=== PATIENT | female | born 1965 | race Caucasian/White ===

== ENCOUNTER 2020-01-19 17:45 | Inpatient (IN) | payer BC, SELFPAY ==
--- NOTE | ~2020-01-19 | US_ITS ---
EXAMINATION: US right upper quadrant DATE: 01/20/2020 14:46 INDICATION: Pancreatitis TECHNIQUE: Multiple grayscale and Doppler ultrasound images of the abdomen were obtained. COMPARISON: None available FINDINGS: Bowel gas obscures visualization of the pancreas. The liver demonstrates increased echogeni city, heterogenous echotexture, and decreased through transmission. No surface nodularity. Normal hep atopetal flow in the main portal vein. The gallbladder is surgically absent. The normal common bile d uct measures 5 mm. IMPRESSION: 1. Diffuse hepatic steatosis. Reviewed, dictated and finalized at location A.
--- NOTE | ~2020-01-19 | XR_ITS ---
XR chest 1V portable DATE: 01/22/2020 06:25 INDICATION: Fever, leukocytosis TECHNIQUE: 01/22/2020 portable AP chest at 0542 hours COMPARISON: 01/19/2020 PA and lateral chest FINDINGS: There are bibasilar infiltrates and/atelectasis, new since 01/19/2020. The lungs otherwise appear clear. Spinal rods and scoliosis of the thoracic and lumbar spine are again noted. IMPRESSION: New bibasilar infiltrate and/or atelectasis since 01/19/2020 Reviewed, dictated and finalized at location A.
--- NOTE | ~2020-01-19 | CT_ITS ---
EXAMINATION: CT abdomen pelvis w con INDICATION: Epigastric pain and elevated lipase TECHNIQUE: Computed tomographic images of the abdomen and pelvis were obtained after the administrati on of 100 cc of Omnipaque 350 intravenous contrast. The dose-length product (DLP) was 1171.85 mGy-cm. Automated exposure control and iterative reconstruction technique were employed. COMPARISON: 05/26/2016 FINDINGS: The lung bases are clear. The heart size is normal. The liver is diffusely low in attenuati on when compared with the spleen, consistent with hepatic steatosis. There is a 9 mm cyst in the left hepatic lobe. The gallbladder is surgically absent. The spleen and adrenal glands are normal. There are peripelvic cysts of the otherwise normal kidneys. The body and tail of the pancreas are enlarged relative to the head and neck. There is a moderate amount of peripancreatic fluid surrounding the bod y and tail and extending into the left anterior pararenal space and left pericolic gutter. No patholo gically enlarged abdominal or pelvic lymph nodes are identified. There is no free intraperitoneal gas or evidence of bowel obstruction. The appendix is normal. There is thoracolumbar levoscoliosis with a partially imaged thoracolumbar distraction karen. IMPRESSION: 1. Acute pancreatitis, likely interstitial edematous pancreatitis, with acute peripancreatic fluid co llection. 2. Diffuse hepatic steatosis. Reviewed, dictated and finalized at location A. IMPRESSION: 1. Acute pancreatitis, likely interstitial edematous pancreatitis, with acute p eripancreatic fluid collection. 2. Diffuse hepatic steatosis.
--- NOTE | ~2020-01-19 | XR_ITS ---
EXAMINATION: XR chest 2V DATE: 01/19/2020 18:13 INDICATION: Midsternal chest pain radiating to the back TECHNIQUE: PA and lateral views of the chest are obtained. COMPARISON: 02/08/2019 FINDINGS: The lungs are free of acute opacities. There is no pleural effusion or pneumothorax. The ca rdiomediastinal silhouette is normal. Again noted is S-shaped curvature of the spine with a thoracolu mbar distraction karen. Cholecystectomy clips are noted. IMPRESSION: 1. No acute cardiopulmonary abnormality. Reviewed, dictated and finalized at location A.
--- NOTE | 2020-01-19 17:51 | ECG_ITS ---
Measurements Intervals [place] Rate: 80 P: 33 AR: 166 QRS: 12 QRSD: 86 T: 29 QT: 387 QTc: 448 Interpretive Statements SINUS RHYTHM VOLTAGE CRITERIA FOR LVH MINIMAL Q WAVES- HIGH LATERAL LEADS CONSIDER INFERIOR INFARCT, AGE INDETERMINATE BASELINE ARTIFACT- I, II, AVR, AVL ABNORMAL ECG Electronically Signed On 01-19-2020 20:13:12 CDT by Teodoro Shaw D.O.
[2020-01-19 17:52] VITALS: BP 164/117; PULSE 88; RESP 20; TEMP 36.5; O2SAT 99
[2020-01-19 17:59] VITALS: PULSE 85; O2SAT 99
[2020-01-19] MEDS: ASPIRIN 81 MG CHEWABLE TABLET 324 MG PO (18:15)
[2020-01-19 18:29] LABS: Basophils Percent Auto 0.2 % (0.2-1.2); Eosinophils Absolute Auto 0.1 K/mm3 (0-0.3); Hemoglobin 14.4 g/dL (12.0-15.0); Immature Granulocyte Absolute 0.07 K/mm3 (0.00-0.031); Immature Granulocyte Percent A 0.5 % (0-0.5); Lymphocytes Absolute Auto 2.25 K/mm3 (0.9-3.2); Lymphocytes Percent Auto 15.8 % (18.3-44.2); Mean Corpuscular Hemoglobin 30.3 pg (26-34); Mean Corpuscular Volume 94.7 fl (80-100); Monocytes Percent Auto 6.9 % (2.6-8.5); Neutrophils Absolute Auto 10.8 K/mm3 (1.3-6.7); Neutrophils Percent Auto 75.6 % (45.5-73.1); Platelet Count Result 335 k/mm3 (150-375); Red Blood Count 4.75 M/mm3 (4.2-5.4); Red Cell Distribution Width 13.1 % (11.5-14.5); White Blood Count 14.3 K/mm3 (4.5-10.0)
[2020-01-19 18:39] LABS: INR 0.9
[2020-01-19 18:40] LABS: Partial Thromboplastin Time 28.7 SECONDS (22.3-36.8)
[2020-01-19 18:44] LABS: Anion Gap 12.9 mmol/L (7-16); Blood Urea Nitrogen 13 mg/dL (7-17); Calcium 8.7 mg/dL (8.4-10.2); Carbon Dioxide 28 mmol/L (22-30); Chloride 104 mmol/L (98-107); Estimated CRCL calculation 62 ml/min; Estimated Glomerular Filt Rate 58; Glucose 136 mg/dL (65-105); Potassium 3.9 mmol/L (3.4-5.0); Sodium 141 mmol/L (137-145)
[2020-01-19 18:56] LABS: Troponin I < 0.012 ng/mL (0.000-0.034)
[2020-01-19] MEDS: BELLADONNA ALK/PHENOB ELIX 10 ML, MAG HYDROX/ALUMINUM HYD/SIMETH 30 ML, LIDOCAINE HCL 2... PO (20:21)
[2020-01-19 20:53] LABS: Alanine Aminotransferase 29 U/L (4-35); Albumin Level 4.3 g/dL (3.5-5.1); Alkaline Phosphatase 77 U/L (38-126); Aspartate Amino Transferase 30 U/L (14-36)
--- NOTE | 2020-01-19 21:02 | ED.GENADULT ---
HPI - General Adult General Chief complaint: Chest Pain Stated complaint: chest pain Time Seen by Provider: 01/19/20 17:57 Source: patient and family Mode of arrival: ambulatory Limitations: no limitations History of Present Illness HPI narrative: 54-year-old female History of GERD hypertension and as it turns out a previous cholecystectomy Around 5:00 tonight she started having epigastric pain radiated to her back and was not relieved by omeprazole She did not have nausea or shortness of breath or diaphoresis She was just working at her computer and cannot really identify anything that might of precipitated her symptoms She does not drink alcohol Onset (ago): hour(s) Location: chest and abdomen Radiation: back Severity: moderate Quality: aching Relieving factors: none Exacerbating factors: none Related Data Home Medications Medication Instructions Recorded Confirmed hyoscyamine sulfate mg 01/19/20 levothyroxine 01/19/20 lisinopril 01/19/20 nabumetone mg 01/19/20 omeprazole 01/19/20 tramadol mg 01/19/20 Allergies Allergy/AdvReac Type Severity Reaction Status Date / Time codeine Allergy Hives Verified 01/19/20 17:58 Penicillins Allergy Rash Verified 01/19/20 17:58 Review of Systems Review of Systems: All systems reviewed & are unremarkable except as noted in HPI and below Constitutional: Constitutional: Denies chills and Denies fever(s) Cardiovascular: Cardiovascular: Reports no additional cardiovascular complaints Respiratory: Respiratory: Reports no additional respiratory complaints Gastrointestinal: Gastrointestinal: Denies diarrhea and Denies vomiting Genitourinary: Genitourinary: Reports no additional female genitourinary complaints Musculoskeletal: Musculoskeletal: Reports back pain Neurologic: Denies dizziness, Denies numbness and Denies weakness [facility] Social History Social History Gender identity (if verbalized by the patient): Female Exam Const: General: no acute distress Nutritional Appearance: obese Orientation/consciousness: patient oriented x3 HENMT: Mouth: Yes moist mucous membranes Eyes: Conjunctivae: conjunctivae normal EOM: EOMs intact bilaterally Resp: Effort & Inspection: normal respiratory effort Auscultation: clear to auscultation bilaterally Other: Slightly tender anteriorly does not reproduce her symptoms Cardio: Rate: regular rate Rhythm: regular rhythm GI: Inspection: non-distended GI Palp: Yes Soft to palpation, Yes Tenderness to palpation present (GI) (Upper abdomen/epigastric), No Guarding due to palpation present (GI) and No Rebound tenderness present : General: Yes no CVA tenderness Back/Spine/Pelvis: Other: Long midline scar Skin: General skin exam: normal color Neuro: General: patient oriented x3 and no focal motor deficits Extrem: General: no edema Psych: Mental Status: mental status grossly normal Course Vital Signs Vital signs: Vital Signs Temperature 36.5 C 01/19/20 17:52 Pulse Rate 88 01/19/20 17:52 Respiratory Rate 01/19/20 17:52 Blood Pressure 164/117 H 01/19/20 17:52 Pulse Oximetry 99 01/19/20 17:52 Temperature 36.5 C 01/19/20 17:52 Pulse Rate 85 01/19/20 17:59 Respiratory Rate 20 01/19/20 17:52 Blood Pressure 164/117 H 01/19/20 17:52 Pulse Oximetry 99 01/19/20 17:59 Medical Decision Making MDM Narrative Medical decision making narrative: d/w hospitalist for admit Vital Signs Vital Signs: Vital Signs Temperature 36.5 C 01/19/20 17:52 Pulse Rate 88 01/19/20 17:52 Respiratory Rate 20 01/19/20 17:52 Blood Pressure 164/117 H 01/19/20 17:52 Pulse Oximetry 99 01/19/20 17:52 Temperature 36.5 C 01/19/20 17:52 Pulse Rate 85 01/19/20 17:59 Respiratory Rate 20 01/19/20 17:52 Blood Pressure 164/117 H 01/19/20 17:52 Pulse Oximetry 99 01/19/20 17:59 Lab Data Result diagrams: 01/19/20 18:03 01/19/20 18:03
[2020-01-19 21:13] LABS: Lipase 18541 U/L (23-300)
[2020-01-19 21:30] LABS: Troponin I < 0.012 ng/mL (0.000-0.034)
[2020-01-19] MEDS: DICYCLOMINE HCL INJ 20 MG/2 ML VIAL IM (22:29)
[2020-01-19] MEDS: LACTATED RINGERS 1,000 ML 999 ML IV CONT (22:32)
[2020-01-19] MEDS: PANTOPRAZOLE SODIUM IV 40 MG VIAL IV PUSH (22:32)
[2020-01-19 23:17] VITALS: BP 155/86; PULSE 89; RESP 16; TEMP 36.8; O2SAT 97
--- NOTE | 2020-01-19 23:31 | ADMGEN ---
This patient, Parisa Ramírez, was admitted to Medical Room 349-01. Patient/family oriented to hospital policies and general routines including ID bracelet, bed and alarms, visiting hours, pain management, procedures, bathroom and other care routines, personal items, smoking policy, room service/diet, and visiting hours. Valuables list has been completed. Information on how to activate the Rapid Response Team has been discussed. Patient/Family are encouraged to report perceived risks to care and to ask questions if they do not understand what they are told or what they should do.
[2020-01-19 23:44] VITALS: BP 152/86; PULSE 80; RESP 16; TEMP 36.7; O2SAT 97
[2020-01-19] MEDS: LACTATED RINGERS 1,000 ML 200 ML IV CONT (23:45)
[2020-01-20] VITALS (7 sets, daily range): BP systolic 150–160; BP diastolic 83–99; PULSE 82–98; RESP 16–20; TEMP 36.1–38.1; O2SAT 92–96; BMI 42.3
[2020-01-20 00:09] LABS: Troponin I < 0.012 ng/mL (0.000-0.034)
[2020-01-20] MEDS: ONDANSETRON INJ 4 MG/2 ML VIAL IV PUSH ×3 (00:20→20:53)
--- NOTE | 2020-01-20 02:25 | PM.IMHP ---
H&P: HPI History of Present Illness Chief complaint: Chest pain Narrative: Date and time of patient contact: 01/20/2020 at 3:00 a.m. Parisa Ramírez is a 54 year old female with a past medical history of essential hypertension, hypothyroidism, GERD and cholecystectomy who presented to the ER with chest pain.The patient reports that around 2:00 p.m. she ate a lunch consisting of a cheeseburger and fries. at around 4:00 p.m. she developed lower chest pain /epigastric pain that was moderate in intensity. She describes the pain as a deep ache. After a few minutes the pain then radiated through to her back. Pain also radiated around to her right side of her abdomen. It was accompanied by some nausea and shortness of breath She took her omeprazole thinking that pain was due to GERD. she did not have any relief with the omeprazole. By the time she arrived to the ER her pain was not 7 or 8/10 in intensity. she reports shortness of breath because of the severity of her abdominal pain. She denies any palpitations, orthopnea or paroxysmal nocturnal dyspnea. While in the ER she received a GI cocktail. She had emesis of a GI cocktail shortly thereafter. She also then had emesis of the lunch she had eaten earlier in the day. She has had some dry heaves but denies any further vomiting. Her pain is unrelieved despite fentanyl. She reports that initially the fentanyl seems to give her some mild relief in pain but her pain rapidly returns after about 30 minutes. Her pain is worse with palpation of her abdomen. She has never had abdominal pain like this before. she had a history of a cholecystectomy in 2016 due to acute cholecystitis. She denies having history of gallstones. She had never had pain similar to this before. She does not have a history of alcohol use. She has not had any recent medication changes. Her last bowel movement was a couple of hours prior to onset of her abdominal pain. Her bowel movement was normally formed without hematochezia or melena. She denies having any fevers or chills. Review of Systems Review of Systems: Narrative: 12 systems were reviewed with pertinent positives and negatives per HPI. Except as documented in the HPI, all other systems were reviewed and are negative. [facility] Past Medical History Medical History (Updated 01/20/20 @ 04:59 by Solange Rodriguez DO) Essential hypertension GERD (gastroesophageal reflux disease) Hypothyroidism Osteoarthritis Surgical History Surgical History (Updated 01/20/20 @ 04:40 by Solange Rodriguez DO) Hx of cholecystectomy Previous section Scoliosis of thoracolumbar spine status post surgical repair at age 15 Family History Family History Mother CHF (congestive heart failure) Diabetes mellitus Heart disease Father Hypertension Social History Social History (Updated 01/20/20 @ 04:40 by Solange Rodriguez DO) Social History: Primary care physician: Dr. Akash Baumann Code status: Full code Smoking status: Never smoker Alcohol intake: never Substance use: never Substance use type: does not use Living arrangements: with family Additional living arrangements comments: the patient lives in [place] with her . 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 Gender identity (if verbalized by the patient): Female Sexual Orientation (if Verbalized by the Patient): Straight or Heterosexual Spiritual care concerns: No Meds Home Medications and Allergies Home Medications Medication Instructions Recorded Confirmed Type cetirizine [Zyrtec] 10 mg PO DAILY 01/19/20 01/19/20 History levothyroxine 75 mcg PO QAM 01/19/20 01/19/20 History lisinopril 10 mg PO BID 01/19/20 01/19/20 History nabumetone 50 mg PO DAILY 01/19/20 01/19/20 History omeprazole 40 mg PO DAILY 01/19/20 01/19/20 History soy is
[2020-01-20] MEDS: MORPHINE SULFATE 4 MG/ML INJ IV PUSH ×5 (04:28→20:57)
[2020-01-20] MEDS: PROMETHAZINE HCL 25 MG/ML AMPUL IM (04:28)
[2020-01-20] MEDS: LACTATED RINGERS 1,000 ML 200 ML IV CONT ×2 (04:30→10:10)
[2020-01-20 07:04] LABS: Basophils Percent Auto 0.1 % (0.2-1.2); Eosinophils Percent Auto 0.1 % (0-4.4); Hematocrit 44.6 % (37.0-47.0); Hemoglobin 14.6 g/dL (12.0-15.0); Immature Granulocyte Percent A 0.5 % (0-0.5); Lymphocytes Absolute Auto 0.95 K/mm3 (0.9-3.2); Lymphocytes Percent Auto 5.2 % (18.3-44.2); Mean Corpuscular HGB Conc 32.7 g/dl (32-36); Mean Corpuscular Hemoglobin 30.7 pg (26-34); Mean Corpuscular Volume 93.7 fl (80-100); Mean Platelet Volume 9.9 fl (7.4-10.4); Monocytes Absolute Auto 0.8 K/mm3 (0.1-0.6); Monocytes Percent Auto 4.3 % (2.6-8.5); Neutrophils Absolute Auto 16.3 K/mm3 (1.3-6.7); Neutrophils Percent Auto 89.8 % (45.5-73.1); Platelet Count Result 317 k/mm3 (150-375); Red Blood Count 4.76 M/mm3 (4.2-5.4); Red Cell Distribution Width 13.1 % (11.5-14.5); White Blood Count 18.2 K/mm3 (4.5-10.0)
[2020-01-20 07:16] LABS: Alanine Aminotransferase 30 U/L (4-35); Albumin Level 4.4 g/dL (3.5-5.1); Alkaline Phosphatase 82 U/L (38-126); Anion Gap 14.1 mmol/L (7-16); Aspartate Amino Transferase 27 U/L (14-36); Bilirubin,Total 1.6 mg/dL (0.2-1.3); Blood Urea Nitrogen 10 mg/dL (7-17); Calcium 9.2 mg/dL (8.4-10.2); Carbon Dioxide 25 mmol/L (22-30); Chloride 102 mmol/L (98-107); Estimated CRCL calculation 98 ml/min; Estimated Glomerular Filt Rate > 60; Glucose 137 mg/dL (65-105); Lipase 1530 U/L (23-300); Potassium 4.1 mmol/L (3.4-5.0); Sodium 137 mmol/L (137-145)
[2020-01-20 07:20] LABS: Triglycerides 87 mg/dL (<150)
[2020-01-20] MEDS: ENOXAPARIN 40 MG/0.4 ML SYRINGE SUB-Q (08:44)
--- NOTE | 2020-01-20 10:49 | WPDGICN ---
Assessment and Plan Assessment and plan (1) Acute pancreatitis: Code(s): K85.90 - Acute pancreatitis without necrosis or infection, unspecified Status: Acute Assessment and Plan: Acute pancreatitis evident by elevated lipase as well as CT scan findings. Most likely idiopathic. Patient has previously had cholecystectomy. She denies significant alcohol intake. Because of her obesity lipid level will be reviewed. Plan to treat her with conservatively with bowel rest. Pain control. Continue monitor liver enzymes and lipase. We will consider advancing to a low-fat diet as her pain subsides and lipase levels decline (2) Obesity (BMI 30.0-34.9): Code(s): E66.9 - Obesity, unspecified Status: Acute GI Consult Note Consult date/time: 01/20/20 10:49 HPI: Parisa Ramírez is a 54 year old female seen in evaluation at the request of the hospitalist service.Patient has a history of hypertension, hypothyroidism, previous cholecystectomy. She was in usual state of health till yesterday when she developed midepigastric pain with radiation straight through to her back. She states this started mid afternoon after eating a cheeseburger. She states pain is persisted since that time. Last evening she went to the emergency room was found to have markedly elevated lipase. CT scan was consistent with acute pancreatitis. Patient states that she has had a cholecystectomy many years ago because of acute cholecystitis. She is uncertain if there were gallstones present. She denies alcohol intake. She has had no recent change in medications. No one in the family has had pancreatic disease. Review of Systems Review of Systems: All systems reviewed & are unremarkable except as noted in HPI and below PMFSH Past Medical History Medical History Essential hypertension GERD (gastroesophageal reflux disease) Hypothyroidism Osteoarthritis Surgical History Surgical History Hx of cholecystectomy Previous section Scoliosis of thoracolumbar spine status post surgical repair at age 15 Family History Family History Mother CHF (congestive heart failure) Diabetes mellitus Heart disease Father Hypertension Social History Social History (Updated 01/20/20 @ 04:40 by Solange Rodriguez DO) Social History: Primary care physician: Dr. Akash Baumann Code status: Full code Smoking status: Never smoker Alcohol intake: never Substance use: never Substance use type: does not use Living arrangements: with family Additional living arrangements comments: the patient lives in [place] with her . 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 Gender identity (if verbalized by the patient): Female Sexual Orientation (if Verbalized by the Patient): Straight or Heterosexual Spiritual care concerns: No Meds Home Medications and Allergies Home Medications Medication Instructions Recorded Confirmed Type cetirizine [Zyrtec] 10 mg PO DAILY 01/19/20 01/19/20 History levothyroxine 75 mcg PO QAM 01/19/20 01/19/20 History lisinopril 10 mg PO BID 01/19/20 01/19/20 History nabumetone 50 mg PO DAILY 01/19/20 01/19/20 History omeprazole 40 mg PO DAILY 01/19/20 01/19/20 History soy isofla-blk cohosh-mag bark 155 cap PO DAILY 01/19/20 01/19/20 History [Estroven] tramadol 50 mg PO HS 01/19/20 01/19/20 History Allergies Allergy/AdvReac Type Severity Reaction Status Date / Time codeine Allergy Hives Verified 01/19/20 23:47 Penicillins Allergy Rash Verified 01/19/20 23:47 Vital Signs Vital Signs - 24 hr 01/19/20 17:52 01/19/20 17:59 01/19/20 23:17 Temperature 97.7 F 98.2 F Pulse Rate 88 85 89 Respiratory Rate 20 16 Blood Pressure 164/117 H 155/86 H
--- NOTE | 2020-01-20 11:40 | PM.IMPN ---
Progress Note: A&P Assessment and Plan (1) Pancreatitis: Qualifiers: Acute pancreatitis complication: no infection or necrosis Chronicity: acute Pancreatitis type: idiopathic Qualified Code(s): K85.00 - Idiopathic acute pancreatitis without necrosis or infection Code(s): K85.90 - Acute pancreatitis without necrosis or infection, unspecified Status: Acute Assessment and Plan: Evident on CT. Likely due to idiopathic pancreatitis, especially in the setting of the acute high fat meal. She has a history of cholecystectomy, therefore gallstone pancreatitis is less likely. She denies significant alcohol use. Triglycerides are wnl. Lipase levels improved. She had increase in leukocytosis. Continue NPO diet. Advance to clear liquid diet with improvement of pain and lipase levels Continue IV fluids Continue analgesics as needed. Continue to monitor lipase Will check RUQ US to rule out possible gallstones. Gastroenterology has been consulted and recommendations are appreciated (2) Hypertension: Qualifiers: Hypertension type: essential hypertension Qualified Code(s): I10 - Essential (primary) hypertension Code(s): I10 - Essential (primary) hypertension Status: Acute Assessment and Plan: Blood pressure was reviewed and is elevated. Continue to hold lisinopril while NPO. Plan to resume when clinically appropriate. IV hydralazine is ordered as needed for SBP >165 (3) GERD (gastroesophageal reflux disease): Qualifiers: Esophagitis presence: esophagitis presence not specified Qualified Code(s): K21.9 - Gastro-esophageal reflux disease without esophagitis Code(s): K21.9 - Gastro-esophageal reflux disease without esophagitis Status: Acute Assessment and Plan: Asymptomatic at this time. Begin Pepcid (4) Hypothyroidism: Qualifiers: Hypothyroidism type: unspecified Qualified Code(s): E03.9 - Hypothyroidism, unspecified Code(s): E03.9 - Hypothyroidism, unspecified Status: Acute Assessment and Plan: Transition to IV levothyroxine while NPO Check TSH Subjective Date/time seen: 01/20/20 11:40 Interval history: Date of service: 01/20/2020 She complains of 6/10 aching epigastric pain that radiates through to the back. Hre pain is persistent and is unchanged with positional changes. She had an episode of emesis early this morning. She still feels nauseous. She has no appetite. She denies GERD symptoms. She has been passing flatus and belching. Her last BM was yesterday before presenting to the hospital. She is able to get up and walk to the bathroom without difficulty. She denies weakness, dizziness, or lightheadedness. She feels short of breath, especially when her pain is more severe. She denies cough or chest pain. She denies headache or confusion. She has no additional concerns. Review of Systems Review of Systems: Narrative: A 12 point review of systems was reviewed with pertinent positives and negatives as per HPI. Exam Narrative: Exam Narrative: Ms. Ramírez is examined alone today. She is an obese 54 year old female who is sitting up at the bedside. She appears comfortable and is in NARD. HR 91, BP 160/83, RR 20, T 97.6, 96% on room air Neuro: awake, alert and oriented x4, speech clear, no focal neuro deficits noted HEENMT: normocephalic, atraumatic, EOMI, sclerae anicteric, xanthelasma noted on bilateral lower eyelids, moist oral mucosa Neck: supple, no lymphadenopathy Respiratory: clear to auscultation bilaterally, nonlabored breathing Cardio: regular rate, regular rhythm with S1-S2 Abdomen: obese, nondistended, normoactive bowel sounds, soft, tender to palpation in epigastric region, no rigidity or guarding Extremities: no edema, erythema, cyanosis, clubbing, or tenderness to palpation, DP pulses 2+ bilaterally Skin: somewhat pale, no rashes or lesions, warm and dry Psych: approp
[2020-01-20] MEDS: FAMOTIDINE 20 MG/2 ML VIAL IV PUSH (20:56)
[2020-01-20] MEDS: LACTATED RINGERS 1,000 ML 100 ML IV CONT (21:00)
[2020-01-21 01:02] VITALS: TEMP 37.6
[2020-01-21] MEDS: MORPHINE SULFATE 4 MG/ML INJ IV PUSH ×5 (01:06→19:54)
[2020-01-21] MEDS: ONDANSETRON INJ 4 MG/2 ML VIAL IV PUSH ×4 (01:06→13:52)
[2020-01-21 04:27] VITALS: BP 150/93; PULSE 101; RESP 18; TEMP 37.1; O2SAT 95
[2020-01-21] MEDS: LEVOTHYROXINE SODIUM INJ 100 MCG/5 ML VIAL 37.5 MCG IV PUSH (05:36)
[2020-01-21] MEDS: LACTATED RINGERS 1,000 ML 100 ML IV CONT ×2 (05:36→15:46)
[2020-01-21 06:34] LABS: Hematocrit 39.3 % (37.0-47.0); Hemoglobin 12.6 g/dL (12.0-15.0); Mean Corpuscular HGB Conc 32.1 g/dl (32-36); Mean Corpuscular Volume 93.6 fl (80-100); Mean Platelet Volume 10.1 fl (7.4-10.4); Platelet Count Result 281 k/mm3 (150-375); Red Cell Distribution Width 13.4 % (11.5-14.5); White Blood Count 20.3 K/mm3 (4.5-10.0)
[2020-01-21 06:46] LABS: Alanine Aminotransferase 28 U/L (4-35); Albumin Level 3.7 g/dL (3.5-5.1); Alkaline Phosphatase 61 U/L (38-126); Anion Gap 10.9 mmol/L (7-16); Aspartate Amino Transferase 29 U/L (14-36); Bilirubin,Total 2.2 mg/dL (0.2-1.3); Blood Urea Nitrogen 8 mg/dL (7-17); Calcium 8.5 mg/dL (8.4-10.2); Carbon Dioxide 30 mmol/L (22-30); Chloride 97 mmol/L (98-107); Estimated CRCL calculation 85 ml/min; Estimated Glomerular Filt Rate > 60; Glucose 123 mg/dL (65-105); Lipase 490 U/L (23-300); Potassium 3.9 mmol/L (3.4-5.0); Sodium 134 mmol/L (137-145)
--- NOTE | 2020-01-21 07:27 | WPDGIPROGNO ---
Progress Note: A&P Additional Plan Patient continues to complain of diffuse mid abdominal discomfort. Less than yesterday. She has had no more nausea vomiting. Physical exam reveals patient to be alert. Afebrile. She is anicteric. Lungs are clear. Heart without murmur. Abdomen is obese. Modest distention. Bowel sounds are diminished. Abdomen is distended with mild tympany. Extremities are without clubbing cyanosis or edema. Labs reveal LFTs to be normal. Lipase 490. Ultrasound reveals fatty liver. Evidence for previous cholecystectomy. Impression 1. Idiopathic pancreatitis. Patient has a prior history of cholecystectomy. No history of alcohol intake. Plan is for conservative therapy. She may have a mild ileus. I would continue to hold diet. Pain control advised. Continue to monitor labs. Lipase is improved dramatically. Hopefully we can advanced diet over the next day or 2. Continue to monitor labs and lipase. Subjective Date/time seen: 01/21/20 07:27 Objective Data Vital Signs Vital Signs: Vital Signs - 24 hr 01/20/20 07:52 01/20/20 08:44 01/20/20 14:41 Temperature 98.9 F Pulse Rate 96 Respiratory Rate 20 16 Blood Pressure 156/98 H Pulse Oximetry 92 93 93 01/20/20 22:00 01/21/20 01:02 01/21/20 04:27 Temperature 100.5 F H 99.7 F H 98.8 F Pulse Rate 98 101 H Respiratory Rate 18 18 Blood Pressure 150/99 H 150/93 H Pulse Oximetry 95 95 Intake/Output Intake/Output: Intake & Output 01/18/20 01/19/20 01/20/20 01/21/20 23:59 23:59 23:59 23:59 Intake Total 1000 3000 1000 Output Total 1875 750 Balance 1000 1125 250 Meds/Results Medications: Active Medications Generic Name Dose Route Start Last Admin Trade Name Freq PRN Reason Stop Dose Admin Dicyclomine HCl 20 mg 01/19/20 22:35 Bentyl Inj IM Q6H PRN Abdominal Cramping Enoxaparin Sodium 40 mg 01/20/20 09:00 01/20/20 08:44 Lovenox SUB-Q 40 mg DAILY STEF Administration Famotidine 20 mg 01/20/20 21:00 01/20/20 20:56 Pepcid Iv IV PUSH 20 mg Q12HR STEF Administration Hydralazine HCl 10 mg 01/20/20 03:32 Apresoline Hcl Inj IV PUSH Q4H PRN SBP greater than 165 Lactated Ringer's 1,000 mls @ 100 mls/hr 01/19/20 22:35 01/21/20 05:36 Lr - Lactated Ringers Iv IV CONT 100 mls/hr .Q10H STEF Administration Acetaminophen 1,000 mg in 100 mls @ 400 mls/hr 01/20/20 23:29 Ofirmev 1,000 Mg Ivpb IVPB 01/21/20 23:30 Q6H PRN Fever Levothyroxine Sodium 37.5 mcg 01/21/20 06:30 01/21/20 05:36 Synthroid Inj IV PUSH 37.5 mcg DAILY@0630 STEF Administration Morphine Sulfate 4 mg 01/20/20 03:30 01/21/20 05:34 Morphine Sulfate Inj IV PUSH 4 mg Q4H PRN Administration Pain Rated 7-10 Ondansetron HCl 4 mg 01/19/20 22:35 01/21/20 05:34 Zofran Inj IV PUSH 4 mg Q4H PRN Administration Nausea Radiology Results: ITS Impressions Chest X-Ray 01/19/20 18:23 IMPRESSION: 1. No acute cardiopulmonary abnormality. Abdomen/Pelvis CT 01/19/20 23:00 IMPRESSION: 1. Acute pancreatitis, likely interstitial edematous pancreatitis, with acute peripancreatic fluid collection. 2. Diffuse hepatic steatosis. Upper Quadrant Ultrasound 01/20/20 14:59 IMPRESSION: 1. Diffuse hepatic steatosis. Labs Labs: Laboratory Results - last 24 hr 01/21/20 05:48 Sodium 134 L Potassium 3.9 Chloride 97 L Carbon Dioxide 30 Anion Gap 10.9 BUN 8 Creatinine 0.70 Estim Creat Clear Calc 85 Estimated GFR > 60 Glucose 123 H Calcium 8.5 Total Bilirubin 2.2 H AST 29 ALT 28 Alkaline Phosphatase 61 Total Protein 7.0 Albumin 3.7 Lipase 490 H
[2020-01-21 07:46] LABS: Thyroid Stimulating Hormone Reflex 0.631 uIU/mL (0.465-4.68)
[2020-01-21] MEDS: ENOXAPARIN 40 MG/0.4 ML SYRINGE SUB-Q (09:26)
[2020-01-21] MEDS: FAMOTIDINE 20 MG/2 ML VIAL IV PUSH ×2 (09:27→19:54)
[2020-01-21 09:40] VITALS: BP 150/86; PULSE 96; RESP 18; O2SAT 94
[2020-01-21 14:00] VITALS: BP 140/82; PULSE 94; RESP 20; TEMP 36.4; O2SAT 96
--- NOTE | 2020-01-21 16:31 | PM.IMPN ---
Progress Note: A&P Assessment and Plan (1) SIRS (systemic inflammatory response syndrome): Code(s): R65.10 - Systemic inflammatory response syndrome (SIRS) of non-infectious origin without acute organ dysfunction Status: Acute Assessment and Plan: She met SIRS criteria with fever and leukocytosis. Obtain blood cultures. There is no suspected source of infection at this time. Her fever and leukocytosis may be due to her acute pancreatitis. Discussed wtih GI. Antibiotics are not indicated at this time. Plan to obtain blood cultures, UA, and CXR. Continue to trend WBC and monitor vitals. (2) Pancreatitis: Qualifiers: Acute pancreatitis complication: no infection or necrosis Chronicity: acute Pancreatitis type: idiopathic Qualified Code(s): K85.00 - Idiopathic acute pancreatitis without necrosis or infection Code(s): K85.90 - Acute pancreatitis without necrosis or infection, unspecified Status: Acute Assessment and Plan: Evident on CT. Likely due to idiopathic pancreatitis, especially in the setting of the acute high fat meal. She has a history of cholecystectomy, therefore gallstone pancreatitis is less likely. She denies significant alcohol use. Triglycerides are within normal limits. RUQ US revealed hepatic steatosis with no evidence of retained gallstones. Lipase levels continue to improve. WBC and bilirubin have increased. AST, ALT, ALP are normal. She had a temperature of 100.5F overnight. Gastroenterology is on board. Discussed with Dr. Frank and will increase her IV fluid rate. Continue bowel rest with NPO diet. Continue analgesics PRN. Continue antiemetics PRN. Continue to trend lipase, CBC, CMP. Obtain blood cultures due to fever and leukocytosis. Plan to consider MRCP if leukocytosis and bilirubin elevation do not improve with conservative management. (3) Hypertension: Qualifiers: Hypertension type: essential hypertension Qualified Code(s): I10 - Essential (primary) hypertension Code(s): I10 - Essential (primary) hypertension Status: Acute Assessment and Plan: Blood pressure was reviewed and are elevated in the 150s systolic. Lisinopril is on hold since she is NPO. Continue IV hydralazine PRN. Continue to monitor and resume lisinopril when clinically appropriate. (4) GERD (gastroesophageal reflux disease): Qualifiers: Esophagitis presence: esophagitis presence not specified Qualified Code(s): K21.9 - Gastro-esophageal reflux disease without esophagitis Code(s): K21.9 - Gastro-esophageal reflux disease without esophagitis Status: Acute Assessment and Plan: Chronic with no acute issues. Continue pepcid. (5) Hypothyroidism: Qualifiers: Hypothyroidism type: unspecified Qualified Code(s): E03.9 - Hypothyroidism, unspecified Code(s): E03.9 - Hypothyroidism, unspecified Status: Acute Assessment and Plan: Continue IV levothyroxine. TSH was normal at 0.631 01/20. Resume PO levothyroxine when no longer NPO. (6) Obesity (BMI 30.0-34.9): Code(s): E66.9 - Obesity, unspecified Status: Acute Assessment and Plan: Continue to encourage weight loss/lifestyle intervention. (7) DVT prophylaxis: Code(s): Z29.9 - Encounter for prophylactic measures, unspecified Status: Acute Assessment and Plan: Continue lovenox SQ. Time Spent With Patient Time with patient: 25 - 35 minutes Subjective Date/time seen: 01/21/20 16:31 Interval history: Mrs. Ramírez is a 54 y.o. female who is seen in follow-up for acute pancreatitis. She reports that she is still having upper abdominal discomfort which radiates to the back and is better sitting up/leaning forward. She notes that pain is 7/10 and was previously 9/10. She reports mild nausea today but no vomiting. She remains NPO. She had a temperature of 100.5F documented overnight but de
[2020-01-21 22:00] VITALS: BP 152/92; PULSE 105; RESP 20; TEMP 36.6; O2SAT 92
[2020-01-21] MEDS: LACTATED RINGERS 1,000 ML 150 ML IV CONT (22:33)
[2020-01-21 22:53] LABS: Add Urine Microscopic? YES; Appearance Urine Clear (Clear); Bilirubin Urine Negative (Negative); Blood Urine 2+ (Negative); Color Urine Yellow (Yellow); Glucose Urine UA Negative (Negative); Ketones Urine 1+ mg/dL (Negative); Leukocyte Esterase Ur Negative LEU/UL (NEGATIVE); Mucus Urine Rare /lpf; Nitrate Urine Negative (Negative); Protein Urine 1+ mg/dL (Negative); Specific Grav Ur 1.016 (1.001-1.035); Squamous Epithelial Cell Urine Few /hpf (Few); Urobilinogen Urine Negative mg/dL (<2.0)
[2020-01-22] MEDS: MORPHINE SULFATE 4 MG/ML INJ IV PUSH ×4 (02:45→20:10)
[2020-01-22 04:53] VITALS: BP 159/66; PULSE 98; RESP 14; TEMP 36.9; O2SAT 93
[2020-01-22] MEDS: LACTATED RINGERS 1,000 ML 150 ML IV CONT (05:03)
[2020-01-22] MEDS: LEVOTHYROXINE SODIUM INJ 100 MCG/5 ML VIAL 37.5 MCG IV PUSH (05:53)
[2020-01-22 06:07] LABS: Basophils Percent Auto 0.2 % (0.2-1.2); Eosinophils Percent Auto 0.2 % (0-4.4); Hematocrit 36.3 % (37.0-47.0); Hemoglobin 11.7 g/dL (12.0-15.0); Immature Granulocyte Percent A 1.1 % (0-0.5); Lymphocytes Absolute Auto 0.97 K/mm3 (0.9-3.2); Lymphocytes Percent Auto 5.1 % (18.3-44.2); Mean Corpuscular HGB Conc 32.2 g/dl (32-36); Mean Corpuscular Hemoglobin 30.6 pg (26-34); Mean Platelet Volume 10.5 fl (7.4-10.4); Monocytes Absolute Auto 1.4 K/mm3 (0.1-0.6); Monocytes Percent Auto 7.5 % (2.6-8.5); Neutrophils Absolute Auto 16.3 K/mm3 (1.3-6.7); Neutrophils Percent Auto 85.9 % (45.5-73.1); Platelet Count Result 235 k/mm3 (150-375); Red Blood Count 3.82 M/mm3 (4.2-5.4); Red Cell Distribution Width 13.4 % (11.5-14.5)
[2020-01-22 06:31] LABS: Bilirubin Indirect 2.2 mg/dL (0-1.1)
--- NOTE | 2020-01-22 07:00 | WPDGIPROGNO ---
Progress Note: A&P Additional Plan Patient alert and comfortable this morning. She reports pain is somewhat less. She did pass flatus. On physical exam Patient afebrile.abdomen is mildly distended. Mild tympany noted. Bowel sounds are present. Mild epigastric tenderness on palpation. No masses appreciated. Labs revealed WBC 19 K. Hemoglobin 11.7, total bilirubin 2.2 yesterday. Primarily indirect fraction. Impression 1. Idiopathic pancreatitis. Modest improvement today. Still minimal bowel sounds. I would continue to limit her dietary intake. Continue IV fluids. Pain control. Blood cultures are in progress. I would defer antibiotics unless an infection is confirmed. Inflammation undoubtedly related to her pancreatitis. Continue to monitor labs. Subjective Date/time seen: 01/22/20 07:00 Objective Data Vital Signs Vital Signs: Vital Signs - 24 hr 01/21/20 09:40 01/21/20 14:00 01/21/20 22:00 Temperature 97.6 F 97.9 F Pulse Rate 96 94 105 H Respiratory Rate 18 20 20 Blood Pressure 150/86 H 140/82 152/92 H Pulse Oximetry 94 96 92 01/22/20 04:53 Temperature 98.4 F Pulse Rate 98 Respiratory Rate 14 Blood Pressure 159/66 H Pulse Oximetry 93 Intake/Output Intake/Output: Intake & Output 01/19/20 01/20/20 01/21/20 01/22/20 23:59 23:59 23:59 23:59 Intake Total 1000 3000 3200 1100 Output Total 1875 2250 1230 Balance 1000 1125 950 -130 Meds/Results Medications: Active Medications Generic Name Dose Route Start Last Admin Trade Name Freq PRN Reason Stop Dose Admin Dicyclomine HCl 20 mg 01/19/20 22:35 Bentyl Inj IM Q6H PRN Abdominal Cramping Enoxaparin Sodium 40 mg 01/20/20 09:00 01/21/20 09:26 Lovenox SUB-Q 40 mg DAILY STEF Administration Famotidine 20 mg 01/20/20 21:00 01/21/20 19:54 Pepcid Iv IV PUSH 20 mg Q12HR STEF Administration Hydralazine HCl 10 mg 01/20/20 03:32 Apresoline Hcl Inj IV PUSH Q4H PRN SBP greater than 165 Lactated Ringer's 1,000 mls @ 150 mls/hr 01/19/20 22:35 01/22/20 05:03 Lr - Lactated Ringers Iv IV CONT 150 mls/hr .Q6H40M STEF Administration Acetaminophen 1,000 mg in 100 mls @ 400 mls/hr 01/22/20 04:50 01/22/20 05:17 Ofirmev 1,000 Mg Ivpb IVPB 01/23/20 04:51 Infused Q6H PRN Infusion FEVER OR PAIN 1-5 Levothyroxine Sodium 37.5 mcg 01/21/20 06:30 01/22/20 05:53 Synthroid Inj IV PUSH 37.5 mcg DAILY@0630 STEF Administration Morphine Sulfate 4 mg 01/20/20 03:30 01/22/20 02:45 Morphine Sulfate Inj IV PUSH 4 mg Q4H PRN Administration Pain Rated 7-10 Ondansetron HCl 4 mg 01/19/20 22:35 01/21/20 13:52 Zofran Inj IV PUSH 4 mg Q4H PRN Administration Nausea Radiology Results: ITS Impressions Abdomen/Pelvis CT 01/19/20 23:00 IMPRESSION: 1. Acute pancreatitis, likely interstitial edematous pancreatitis, with acute peripancreatic fluid collection. 2. Diffuse hepatic steatosis. Upper Quadrant Ultrasound 01/20/20 14:59 IMPRESSION: 1. Diffuse hepatic steatosis. Labs Labs: Laboratory Results - last 24 hr 01/21/20 01/21/20 01/21/20 05:48 05:48 22:32 WBC 20.3 H RBC 4.20 Hgb 12.6 Hct 39.3 MCV 93.6 MCH 30.0 MCHC 32.1 RDW 13.4 Plt Count 281 MPV 10.1 Immature Gran % (Auto) Neut % (Auto) Lymph % (Auto) [place] % (Auto) Eos % (Auto) Baso % (Auto) Lymph # (Auto) [place] # (Auto) Eos # (Auto) Baso # (Auto) Abs Immat Gran (auto) Absolute Neuts (auto) Absolute Nucleated RBC Nucleated RBC % Direct Bilirubin Indirect Bilirubin TSH (Reflex) 0.631 Urine Color Yellow Urine Appearance Clear Urine pH 7.0 Ur Specific [place] 1.016 Urine Protein 1+ H Urine Glucose (UA) Negative Urine Ketones 1+ H Ur Blood (Man) 2+ H Urine Nitrate Negative Urine Bilirubin Negative Urine Urobilinogen Negative Ur Leukocyte E
[2020-01-22 07:07] LABS: Alanine Aminotransferase 40 U/L (4-35); Albumin Level 3.4 g/dL (3.5-5.1); Alkaline Phosphatase 65 U/L (38-126); Anion Gap 9.7 mmol/L (7-16); Aspartate Amino Transferase 34 U/L (14-36); Bilirubin,Total 2.1 mg/dL (0.2-1.3); Blood Urea Nitrogen 8 mg/dL (7-17); Calcium 8.3 mg/dL (8.4-10.2); Carbon Dioxide 30 mmol/L (22-30); Chloride 98 mmol/L (98-107); Estimated CRCL calculation 85 ml/min; Estimated Glomerular Filt Rate > 60; Glucose 99 mg/dL (65-105); Lipase 92 U/L (23-300); Magnesium 1.9 mg/dL (1.6-2.3); Potassium 3.7 mmol/L (3.4-5.0); Sodium 134 mmol/L (137-145)
[2020-01-22] MEDS: ONDANSETRON INJ 4 MG/2 ML VIAL IV PUSH ×2 (08:18→15:16)
[2020-01-22 08:20] VITALS: RESP 14; O2SAT 94
[2020-01-22] MEDS: ENOXAPARIN 40 MG/0.4 ML SYRINGE SUB-Q (08:20)
[2020-01-22] MEDS: FAMOTIDINE 20 MG/2 ML VIAL IV PUSH ×2 (08:20→20:11)
[2020-01-22 09:54] LABS: CRP 34.5 mg/dL (<1.0)
[2020-01-22] MEDS: LACTATED RINGERS 1,000 ML 100 ML IV CONT (13:35)
[2020-01-22 14:00] VITALS: BP 159/88; PULSE 91; RESP 20; TEMP 36.9; O2SAT 96
--- NOTE | 2020-01-22 14:24 | PM.IMPN ---
Progress Note: A&P Assessment and Plan (1) SIRS (systemic inflammatory response syndrome): Code(s): R65.10 - Systemic inflammatory response syndrome (SIRS) of non-infectious origin without acute organ dysfunction Status: Acute Assessment and Plan: She met SIRS criteria with fever and leukocytosis. Blood cultures were obtained and are pending. There is no suspected source of infection at this time. Her fever and leukocytosis may be due to her acute pancreatitis. Discussed with GI. Antibiotics are not indicated at this time. UA was not suspicious for UTI and CXR reveals bibasilar atelectasis vs infiltrate but her clinical picture is much more consistent with atelectasis in the setting of acute pancreatitis with her abdominal pain limiting her ability to take deep breaths. She has been afbrile since the evening of 01/19. Continue to trend WBC and monitor vitals. Monitor for any new sx. (2) Pancreatitis: Qualifiers: Acute pancreatitis complication: no infection or necrosis Chronicity: acute Pancreatitis type: idiopathic Qualified Code(s): K85.00 - Idiopathic acute pancreatitis without necrosis or infection Code(s): K85.90 - Acute pancreatitis without necrosis or infection, unspecified Status: Acute Assessment and Plan: Evident on CT. Likely due to idiopathic pancreatitis, especially in the setting of the acute high fat meal. She has a history of cholecystectomy, therefore gallstone pancreatitis is less likely. She denies significant alcohol use. Triglycerides are within normal limits. RUQ US revealed hepatic steatosis with no evidence of retained gallstones. Lipase levels continue to improve and are normal at 92 today. WBC is elevated but improving. Indirect bilirubin is elevated. AST and ALP are normal. ALT is mildly elevated. She had a temperature of 100.5F the night of 01/19 and has been afbrile since. Gastroenterology is on board. She reports that she started passing flatus yesterday evening and her pain is improving. Continue bowel rest with NPO diet until GI recommends advancement. Continue analgesics PRN. Continue antiemetics PRN. Continue to trend lipase, CBC, CMP. (3) Atelectasis: Code(s): J98.11 - Atelectasis Status: Acute Assessment and Plan: Visualized on CXR and likely due to pain from pancreatitis causing discomfort with deep breathing. Begin incentive spirometry and encourage ambulation. (4) Hypertension: Qualifiers: Hypertension type: essential hypertension Qualified Code(s): I10 - Essential (primary) hypertension Code(s): I10 - Essential (primary) hypertension Status: Acute Assessment and Plan: Blood pressure was reviewed and are elevated in the 150s systolic. Lisinopril is on hold since she is NPO. Continue IV hydralazine PRN. Continue to monitor and resume lisinopril when clinically appropriate. (5) GERD (gastroesophageal reflux disease): Qualifiers: Esophagitis presence: esophagitis presence not specified Qualified Code(s): K21.9 - Gastro-esophageal reflux disease without esophagitis Code(s): K21.9 - Gastro-esophageal reflux disease without esophagitis Status: Acute Assessment and Plan: Chronic with no acute issues. Continue pepcid. (6) Hypothyroidism: Qualifiers: Hypothyroidism type: unspecified Qualified Code(s): E03.9 - Hypothyroidism, unspecified Code(s): E03.9 - Hypothyroidism, unspecified Status: Acute Assessment and Plan: Continue IV levothyroxine. TSH was normal at 0.631 01/20. Resume PO levothyroxine when no longer NPO. (7) Obesity (BMI 30.0-34.9): Code(s): E66.9 - Obesity, unspecified Status: Acute Assessment and Plan: Continue to encourage weight loss/lifestyle intervention. (8) DVT prophylaxis: Code(s): Z29.9 - Encounter for prophylactic measures, unspecified Status: Acu
[2020-01-22 22:00] VITALS: BP 152/87; PULSE 95; RESP 18; TEMP 36.8; O2SAT 93
[2020-01-23] MEDS: LACTATED RINGERS 1,000 ML 100 ML IV CONT ×2 (00:26→11:06)
[2020-01-23] MEDS: MORPHINE SULFATE 4 MG/ML INJ IV PUSH (05:49)
[2020-01-23] MEDS: LEVOTHYROXINE SODIUM INJ 100 MCG/5 ML VIAL 37.5 MCG IV PUSH (05:51)
[2020-01-23 06:00] VITALS: BP 151/81; PULSE 80; RESP 16; TEMP 36.5; O2SAT 94
[2020-01-23 06:35] LABS: Basophils Percent Auto 0.2 % (0.2-1.2); Eosinophils Absolute Auto 0.1 K/mm3 (0-0.3); Eosinophils Percent Auto 0.6 % (0-4.4); Hematocrit 34.8 % (37.0-47.0); Hemoglobin 11.2 g/dL (12.0-15.0); Immature Granulocyte Percent A 0.6 % (0-0.5); Lymphocytes Percent Auto 6.3 % (18.3-44.2); Mean Corpuscular HGB Conc 32.2 g/dl (32-36); Mean Corpuscular Hemoglobin 30.4 pg (26-34); Mean Corpuscular Volume 94.6 fl (80-100); Mean Platelet Volume 10.9 fl (7.4-10.4); Monocytes Absolute Auto 1.1 K/mm3 (0.1-0.6); Neutrophils Absolute Auto 15.2 K/mm3 (1.3-6.7); Neutrophils Percent Auto 86.3 % (45.5-73.1); Platelet Count Result 257 k/mm3 (150-375); Red Blood Count 3.68 M/mm3 (4.2-5.4); Red Cell Distribution Width 13.3 % (11.5-14.5); White Blood Count 17.5 K/mm3 (4.5-10.0)
[2020-01-23 06:57] LABS: Alanine Aminotransferase 48 U/L (4-35); Albumin Level 3.4 g/dL (3.5-5.1); Alkaline Phosphatase 80 U/L (38-126); Anion Gap 13.6 mmol/L (7-16); Aspartate Amino Transferase 38 U/L (14-36); Bilirubin,Total 1.6 mg/dL (0.2-1.3); Blood Urea Nitrogen 10 mg/dL (7-17); Calcium 8.3 mg/dL (8.4-10.2); Carbon Dioxide 27 mmol/L (22-30); Chloride 97 mmol/L (98-107); Estimated CRCL calculation 85 ml/min; Estimated Glomerular Filt Rate > 60; Glucose 78 mg/dL (65-105); Lipase 45 U/L (23-300); Magnesium 2.1 mg/dL (1.6-2.3); Potassium 3.6 mmol/L (3.4-5.0); Sodium 134 mmol/L (137-145)
--- NOTE | 2020-01-23 07:15 | WPDGIPROGNO ---
Progress Note: A&P Additional Plan Patient feels much better today. Still some epigastric pain with associated back pain. She denies nausea or vomiting. Has begun passing stools and bowel movements. Physical exam reveals her to be alert. Afebrile. Anicteric. Lungs are clear. Heart without murmur. Abdomen is softer. Bowel sounds are present. Mild tympany in the epigastric area. Mild tenderness in the epigastric area. Labs reveal WBC down to 17.5, hemoglobin 11.2 stable. Total bilirubin 1.6, lipase has normalized. At 45. Impression 1. Acute idiopathic pancreatitis. Slow resolution at this time. Plan is to begin advancing diet. Gradually advance to low-fat diet. May increase activity around the room as well. Subjective Date/time seen: 01/23/20 07:15 Objective Data Vital Signs Vital Signs: Vital Signs - 24 hr 01/22/20 08:20 01/22/20 14:00 01/22/20 22:00 Temperature 98.5 F 98.3 F Pulse Rate 91 95 Respiratory Rate 14 20 18 Blood Pressure 159/88 H 152/87 H Pulse Oximetry 94 96 93 01/23/20 06:00 Temperature 97.7 F Pulse Rate 80 Respiratory Rate 16 Blood Pressure 151/81 H Pulse Oximetry 94 Intake/Output Intake/Output: Intake & Output 01/20/20 01/21/20 01/22/20 01/23/20 23:59 23:59 23:59 23:59 Intake Total 3000 3200 2300 1100 Output Total 1875 2250 3030 500 Balance 1125 950 -730 600 Meds/Results Medications: Active Medications Generic Name Dose Route Start Last Admin Trade Name Freq PRN Reason Stop Dose Admin Dicyclomine HCl 20 mg 01/19/20 22:35 Bentyl Inj IM Q6H PRN Abdominal Cramping Enoxaparin Sodium 40 mg 01/20/20 09:00 01/22/20 08:20 Lovenox SUB-Q 40 mg DAILY STEF Administration Famotidine 20 mg 01/20/20 21:00 01/22/20 20:11 Pepcid Iv IV PUSH 20 mg Q12HR STEF Administration Hydralazine HCl 10 mg 01/20/20 03:32 Apresoline Hcl Inj IV PUSH Q4H PRN SBP greater than 165 Lactated Ringer's 1,000 mls @ 100 mls/hr 01/19/20 22:35 01/23/20 00:26 Lr - Lactated Ringers Iv IV CONT 100 mls/hr .Q10H STEF Administration Levothyroxine Sodium 37.5 mcg 01/21/20 06:30 01/23/20 05:51 Synthroid Inj IV PUSH 37.5 mcg DAILY@0630 STEF Administration Morphine Sulfate 4 mg 01/20/20 03:30 01/23/20 05:49 Morphine Sulfate Inj IV PUSH 4 mg Q4H PRN Administration Pain Rated 7-10 Ondansetron HCl 4 mg 01/19/20 22:35 01/22/20 15:16 Zofran Inj IV PUSH 4 mg Q4H PRN Administration Nausea Radiology Results: ITS Impressions Abdomen/Pelvis CT 01/19/20 23:00 IMPRESSION: 1. Acute pancreatitis, likely interstitial edematous pancreatitis, with acute peripancreatic fluid collection. 2. Diffuse hepatic steatosis. Upper Quadrant Ultrasound 01/20/20 14:59 IMPRESSION: 1. Diffuse hepatic steatosis. Chest X-Ray 01/22/20 09:11 IMPRESSION: New bibasilar infiltrate and/or atelectasis since 01/19/2020 Labs Labs: Laboratory Results - last 24 hr 01/22/20 01/23/20 01/23/20 05:42 05:47 05:47 WBC 17.5 H RBC 3.68 L Hgb 11.2 L Hct 34.8 L MCV 94.6 MCH 30.4 MCHC 32.2 RDW 13.3 Plt Count 257 MPV 10.9 H Immature Gran % (Auto) 0.6 H Neut % (Auto) 86.3 H Lymph % (Auto) 6.3 L [place] % (Auto) 6.0 Eos % (Auto) 0.6 Baso % (Auto) 0.2 Lymph # (Auto) 1.10 [place] # (Auto) 1.1 H Eos # (Auto) 0.1 Baso # (Auto) 0.0 Abs Immat Gran (auto) 0.10 H Absolute Neuts (auto) 15.2 H Absolute Nucleated RBC 0.0 Nucleated RBC % 0.0 Sodium 134 L Potassium 3.6 Chloride 97 L Carbon Dioxide 27 Anion Gap 13.6 BUN 10 Creatinine 0.70 Estim Creat Clear Calc 85 Estimated GFR > 60 Glucose 78 Calcium 8.3 L Magnesium 2.1 Total Bilirubin 1.6 H AST 38 H ALT 48 H Alkaline Phosphatase 80 C-Reactive Protein 34.5 H Total Protein 7.0 Albumin 3.4 L Lipase 45
[2020-01-23] MEDS: ENOXAPARIN 40 MG/0.4 ML SYRINGE SUB-Q (08:15)
[2020-01-23] MEDS: FAMOTIDINE 20 MG/2 ML VIAL IV PUSH (08:15)
[2020-01-23 08:17] LABS: CRP 32.2 mg/dL (<1.0)
[2020-01-23] MEDS: lisinopriL 10 MG TABLET PO ×2 (09:34→17:11)
[2020-01-23] MEDS: LORATADINE 10 MG TABLET PO (09:34)
[2020-01-23] MEDS: ACETAMINOPHEN 325 MG TABLET 650 MG PO ×2 (11:09→17:10)
--- NOTE | 2020-01-23 12:18 | PM.IMPN ---
Progress Note: A&P Assessment and Plan (1) SIRS (systemic inflammatory response syndrome): Code(s): R65.10 - Systemic inflammatory response syndrome (SIRS) of non-infectious origin without acute organ dysfunction Status: Acute Assessment and Plan: She met SIRS criteria with fever and leukocytosis. Blood cultures were obtained and reveal NGTD. There is no suspected source of infection. Her fever and leukocytosis are likely due to her acute pancreatitis and are improving as her pancreatitis improves. Discussed with GI. Antibiotics are not indicated at this time. UA was not suspicious for UTI and CXR reveals bibasilar atelectasis vs infiltrate but her clinical picture is much more consistent with atelectasis in the setting of acute pancreatitis with her abdominal pain limiting her ability to take deep breaths. She has been afbrile since the evening of 01/19. Continue to trend WBC and monitor vitals. Monitor for any new sx. (2) Pancreatitis: Qualifiers: Acute pancreatitis complication: no infection or necrosis Chronicity: acute Pancreatitis type: idiopathic Qualified Code(s): K85.00 - Idiopathic acute pancreatitis without necrosis or infection Code(s): K85.90 - Acute pancreatitis without necrosis or infection, unspecified Status: Acute Assessment and Plan: Evident on CT. Likely due to idiopathic pancreatitis, especially in the setting of the acute high fat meal. She has a history of cholecystectomy, therefore gallstone pancreatitis is less likely. She denies significant alcohol use. Triglycerides are within normal limits. RUQ US revealed hepatic steatosis with no evidence of retained gallstones. Lipase levels continue to improve and are normal at 45 today. WBC is elevated but improving. Indirect bilirubin is improving. AST and ALT are mildly elevated. She had a temperature of 100.5F the night of 01/19 and has been afbrile since. Gastroenterology is on board. She was advanced to a full liquid diet today per GI. She tolerated this well. Her bowel function has returned. Continue analgesics PRN. Continue antiemetics PRN. Continue to trend lipase, CBC, CMP. (3) Atelectasis: Code(s): J98.11 - Atelectasis Status: Acute Assessment and Plan: Visualized on CXR and likely due to pain from pancreatitis causing discomfort with deep breathing. Continue incentive spirometry and encourage ambulation. (4) Hypertension: Qualifiers: Hypertension type: essential hypertension Qualified Code(s): I10 - Essential (primary) hypertension Code(s): I10 - Essential (primary) hypertension Status: Acute Assessment and Plan: Blood pressure was reviewed and are elevated. Lisinopril was resumed today since she is no longer NPO. Continue to monitor blood pressures. (5) GERD (gastroesophageal reflux disease): Qualifiers: Esophagitis presence: esophagitis presence not specified Qualified Code(s): K21.9 - Gastro-esophageal reflux disease without esophagitis Code(s): K21.9 - Gastro-esophageal reflux disease without esophagitis Status: Acute Assessment and Plan: Chronic with no acute issues. Continue pepcid. (6) Hypothyroidism: Qualifiers: Hypothyroidism type: unspecified Qualified Code(s): E03.9 - Hypothyroidism, unspecified Code(s): E03.9 - Hypothyroidism, unspecified Status: Acute Assessment and Plan: TSH was normal at 0.631 01/20. Resume PO levothyroxine. (7) Obesity (BMI 30.0-34.9): Code(s): E66.9 - Obesity, unspecified Status: Acute Assessment and Plan: Continue to encourage weight loss/lifestyle intervention. (8) DVT prophylaxis: Code(s): Z29.9 - Encounter for prophylactic measures, unspecified Status: Acute Assessment and Plan: Continue lovenox SQ. Subjective Date/time seen: 01/23/20 12:18 Interval history:
[2020-01-23 12:28] LABS: Hemoglobin A1C 5.3 % (<5.7)
[2020-01-23 14:00] VITALS: BP 158/92; PULSE 76; RESP 16; TEMP 36.2; O2SAT 95
[2020-01-23] MEDS: ONDANSETRON INJ 4 MG/2 ML VIAL IV PUSH (17:11)
[2020-01-23 20:04] VITALS: BP 156/85; PULSE 74; RESP 14; TEMP 36.4; O2SAT 94
[2020-01-24] MEDS: ACETAMINOPHEN 325 MG TABLET 650 MG PO ×3 (01:37→19:53)
[2020-01-24] MEDS: LEVOTHYROXINE SODIUM 75 MCG TABLET PO (06:08)
[2020-01-24] MEDS: ONDANSETRON INJ 4 MG/2 ML VIAL IV PUSH (06:15)
[2020-01-24 06:21] LABS: Basophils Percent Auto 0.1 % (0.2-1.2); Eosinophils Absolute Auto 0.1 K/mm3 (0-0.3); Hematocrit 35.5 % (37.0-47.0); Hemoglobin 11.5 g/dL (12.0-15.0); Immature Granulocyte Absolute 0.12 K/mm3 (0.00-0.031); Immature Granulocyte Percent A 0.9 % (0-0.5); Lymphocytes Absolute Auto 1.14 K/mm3 (0.9-3.2); Lymphocytes Percent Auto 8.3 % (18.3-44.2); Mean Corpuscular HGB Conc 32.4 g/dl (32-36); Mean Corpuscular Hemoglobin 30.6 pg (26-34); Mean Corpuscular Volume 94.4 fl (80-100); Mean Platelet Volume 10.7 fl (7.4-10.4); Monocytes Percent Auto 7.5 % (2.6-8.5); Neutrophils Absolute Auto 11.2 K/mm3 (1.3-6.7); Neutrophils Percent Auto 82.2 % (45.5-73.1); Platelet Count Result 286 k/mm3 (150-375); Red Blood Count 3.76 M/mm3 (4.2-5.4); Red Cell Distribution Width 13.3 % (11.5-14.5); White Blood Count 13.7 K/mm3 (4.5-10.0)
[2020-01-24 06:40] VITALS: BP 149/90; PULSE 78; RESP 15; TEMP 36.8; O2SAT 95
[2020-01-24 06:50] LABS: Alanine Aminotransferase 46 U/L (4-35); Albumin Level 3.4 g/dL (3.5-5.1); Alkaline Phosphatase 73 U/L (38-126); Anion Gap 12.2 mmol/L (7-16); Aspartate Amino Transferase 31 U/L (14-36); Bilirubin,Total 1.2 mg/dL (0.2-1.3); Blood Urea Nitrogen 9 mg/dL (7-17); Calcium 8.2 mg/dL (8.4-10.2); Carbon Dioxide 28 mmol/L (22-30); Chloride 98 mmol/L (98-107); Estimated CRCL calculation 98 ml/min; Estimated Glomerular Filt Rate > 60; Glucose 79 mg/dL (65-105); Potassium 3.2 mmol/L (3.4-5.0); Sodium 135 mmol/L (137-145)
[2020-01-24] MEDS: LACTATED RINGERS 1,000 ML 50 ML IV CONT (07:28)
[2020-01-24] MEDS: lisinopriL 10 MG TABLET PO ×2 (08:25→19:19)
[2020-01-24] MEDS: PANTOPRAZOLE 40 MG TABLET PO (08:25)
[2020-01-24] MEDS: LORATADINE 10 MG TABLET PO (08:25)
[2020-01-24] MEDS: ENOXAPARIN 40 MG/0.4 ML SYRINGE SUB-Q (08:25)
[2020-01-24] MEDS: POTASSIUM CHLORIDE 20 MEQ TABLET 40 MEQ PO (09:39)
--- NOTE | 2020-01-24 12:16 | PM.IMPN ---
Progress Note: A&P Assessment and Plan (1) SIRS (systemic inflammatory response syndrome): Code(s): R65.10 - Systemic inflammatory response syndrome (SIRS) of non-infectious origin without acute organ dysfunction Status: Acute Assessment and Plan: She met SIRS criteria with fever and leukocytosis. Blood cultures were obtained and reveal NGTD. There is no suspected source of infection. Her fever and leukocytosis are likely due to her acute pancreatitis and are improving as her pancreatitis improves. Discussed with GI. Antibiotics are not indicated. She has been afbrile since the evening of 01/19. WBC continues to improve. (2) Pancreatitis: Qualifiers: Acute pancreatitis complication: no infection or necrosis Chronicity: acute Pancreatitis type: idiopathic Qualified Code(s): K85.00 - Idiopathic acute pancreatitis without necrosis or infection Code(s): K85.90 - Acute pancreatitis without necrosis or infection, unspecified Status: Acute Assessment and Plan: Evident on CT. Likely due to idiopathic pancreatitis, especially in the setting of the acute high fat meal. She has a history of cholecystectomy, therefore gallstone pancreatitis is less likely. She denies significant alcohol use. Triglycerides are within normal limits. RUQ US revealed hepatic steatosis with no evidence of retained gallstones. Lipase levels normalized 01/22. WBC continues to improve. Bilirubin has normalized and LFTs are improving. She had a temperature of 100.5F the night of 01/19 and has been afbrile since. Gastroenterology is on board. She continues on a fill liquid diet today and is tolerating this reasonably well. She did have an episode of emesis in the morning prior to eating and has mild pain. Bowel function has returned. Discontinue IV fluids as she is tolerating PO intake well. Continue analgesics PRN. Continue antiemetics PRN. Continue to trend lipase, CBC, CMP. (3) Atelectasis: Code(s): J98.11 - Atelectasis Status: Acute Assessment and Plan: Visualized on CXR and likely due to pain from pancreatitis causing discomfort with deep breathing. Continue incentive spirometry and encourage ambulation. (4) Hypertension: Qualifiers: Hypertension type: essential hypertension Qualified Code(s): I10 - Essential (primary) hypertension Code(s): I10 - Essential (primary) hypertension Status: Acute Assessment and Plan: Blood pressure was reviewed and are elevated at 149/90 although lisinopril was resumed. This may be due to pain although her blood pressures have been persistently above target. Discontinue IV fluids. Consider adding amlodipine if blood pressures do not improve. (5) GERD (gastroesophageal reflux disease): Qualifiers: Esophagitis presence: esophagitis presence not specified Qualified Code(s): K21.9 - Gastro-esophageal reflux disease without esophagitis Code(s): K21.9 - Gastro-esophageal reflux disease without esophagitis Status: Acute Assessment and Plan: Chronic with no acute issues. Continue protonix. (6) Hypothyroidism: Qualifiers: Hypothyroidism type: unspecified Qualified Code(s): E03.9 - Hypothyroidism, unspecified Code(s): E03.9 - Hypothyroidism, unspecified Status: Acute Assessment and Plan: TSH was normal at 0.631 01/20. Continue PO levothyroxine. (7) Obesity (BMI 30.0-34.9): Code(s): E66.9 - Obesity, unspecified Status: Acute Assessment and Plan: Continue to encourage weight loss/lifestyle intervention. (8) Hypokalemia: Code(s): E87.6 - Hypokalemia Status: Acute Assessment and Plan: Potassium was 3.2. Plan to replace with 40mEq of PO potassium chloride and continue to monitor. (9) DVT prophylaxis: Code(s): Z29.9 - Encounter for prophylactic measures, unspecified Status: Acute A
--- NOTE | 2020-01-24 12:23 | WPDGIPROGNO ---
Progress Note: A&P Additional Plan Patient is somewhat anxious this morning. Comfortable at rest. Ambulating in room. Had passing bowel movement. Tolerating liquids. Had brief emesis this morning. Physical exam reveals patient to be alert. Afebrile. Vital signs stable. Lungs are clear. Abdomen is obese. Soft nontender no organomegaly today. Labs reveal WBC 13.7 improving, hemoglobin 11.5 stable. MCV 94. Total bilirubin 1.2, a lipase normalized. Impression 1. Resolving acute pancreatitis. Appears to be idiopathic in nature. Plan is to advance to low-fat diet. Increase ambulation. Discharge if diet tolerated. 2. Diarrhea. He patient had loose stool today. Likely related to resolving ileus. No workup necessary unless this persists. Subjective Date/time seen: 01/24/20 12:23 Objective Data Vital Signs Vital Signs: Vital Signs - 24 hr 01/23/20 14:00 01/23/20 20:04 01/24/20 06:40 Temperature 97.2 F L 97.5 F L 98.3 F Pulse Rate 76 74 78 Respiratory Rate 16 14 15 Blood Pressure 158/92 H 156/85 H 149/90 H Pulse Oximetry 95 94 95 Intake/Output Intake/Output: Intake & Output 01/21/20 01/22/20 01/23/20 01/24/20 23:59 23:59 23:59 23:59 Intake Total 3200 2300 3530 1220 Output Total 2250 3030 2150 500 Balance 950 -730 1380 720 Meds/Results Medications: Active Medications Generic Name Dose Route Start Last Admin Trade Name Freq PRN Reason Stop Dose Admin Acetaminophen 650 mg 01/23/20 08:08 01/24/20 10:49 Tylenol Tablet PO 650 mg Q4H PRN Administration Pain 1-5 Hydrocodone Bitart/Acetaminophen 1 tab 01/23/20 08:08 01/24/20 06:19 [place] 5-325 Mg PO 1 tab Q6H PRN Administration Pain 6-10 Enoxaparin Sodium 40 mg 01/20/20 09:00 01/24/20 08:25 Lovenox SUB-Q 40 mg DAILY STEF Administration Lactated Ringer's 1,000 mls @ 50 mls/hr 01/19/20 22:35 01/24/20 07:28 Lr - Lactated Ringers Iv IV CONT 50 mls/hr .Q20H STEF Administration Levothyroxine Sodium 75 mcg 01/24/20 06:30 01/24/20 06:08 Synthroid PO 75 mcg DAILY@0630 STEF Administration Lisinopril 10 mg 01/23/20 09:00 01/24/20 08:25 Prinivil PO 10 mg BID STEF Administration Loratadine 10 mg 01/23/20 09:00 01/24/20 08:25 Claritin PO 10 mg QAM STEF Administration Ondansetron HCl 4 mg 01/19/20 22:35 01/24/20 06:15 Zofran Inj IV PUSH 4 mg Q4H PRN Administration Nausea Pantoprazole Sodium 40 mg 01/23/20 09:00 01/24/20 08:25 Protonix PO 40 mg QAM STEF Administration Radiology Results: ITS Impressions Abdomen/Pelvis CT 01/19/20 23:00 IMPRESSION: 1. Acute pancreatitis, likely interstitial edematous pancreatitis, with acute peripancreatic fluid collection. 2. Diffuse hepatic steatosis. Upper Quadrant Ultrasound 01/20/20 14:59 IMPRESSION: 1. Diffuse hepatic steatosis. Chest X-Ray 01/22/20 09:11 IMPRESSION: New bibasilar infiltrate and/or atelectasis since 01/19/2020 Labs Labs: Laboratory Results - last 24 hr 01/22/20 01/24/20 01/24/20 05:42 05:50 05:50 WBC 13.7 H RBC 3.76 L Hgb 11.5 L Hct 35.5 L MCV 94.4 MCH 30.6 MCHC 32.4 RDW 13.3 Plt Count 286 MPV 10.7 H Immature Gran % (Auto) 0.9 H Neut % (Auto) 82.2 H Lymph % (Auto) 8.3 L [place] % (Auto) 7.5 Eos % (Auto) 1.0 Baso % (Auto) 0.1 L Lymph # (Auto) 1.14 [place] # (Auto) 1.0 H Eos # (Auto) 0.1 Baso # (Auto) 0.0 Abs Immat Gran (auto) 0.12 H Absolute Neuts (auto) 11.2 H Absolute Nucleated RBC 0.0 Nucleated RBC % 0.0 Sodium 135 L Potassium 3.2 L Chloride 98 Carbon Dioxide 28 Anion Gap 12.2 BUN 9 Creatinine 0.60 L Estim Creat Clear Calc 98 Estimated GFR > 60 Glucose 79 Hemoglobin A1c 5.3 Calcium 8.2 L Total Bilirubin 1.2 AST 31 ALT 46 H Alkaline Phosphatase 73 Total Protein 7.0 Albumin 3.4 L
[2020-01-24 14:00] VITALS: BP 156/76; PULSE 78; RESP 14; TEMP 36.8; O2SAT 95
--- NOTE | 2020-01-24 19:05 | PC.NURSE ---
On 01/24/20, the Graduate Nurse, [ Annie Angeles], provided care and completed [facility] documentation on this patient. I have reviewed the Graduate Nurse's documentation and agree with the findings.
[2020-01-24 21:48] VITALS: BP 155/87; PULSE 77; RESP 14; TEMP 37.2; O2SAT 96
[2020-01-25 05:50] LABS: Hematocrit 34.2 % (37.0-47.0); Hemoglobin 11.2 g/dL (12.0-15.0); Mean Corpuscular HGB Conc 32.7 g/dl (32-36); Mean Corpuscular Hemoglobin 30.4 pg (26-34); Mean Corpuscular Volume 92.9 fl (80-100); Mean Platelet Volume 10.2 fl (7.4-10.4); Platelet Count Result 313 k/mm3 (150-375); Red Blood Count 3.68 M/mm3 (4.2-5.4); Red Cell Distribution Width 13.2 % (11.5-14.5); White Blood Count 11.6 K/mm3 (4.5-10.0)
[2020-01-25 05:51] VITALS: BP 152/86; PULSE 79; RESP 16; TEMP 37.2; O2SAT 95
[2020-01-25 05:56] LABS: Alanine Aminotransferase 37 U/L (4-35); Albumin Level 3.1 g/dL (3.5-5.1); Alkaline Phosphatase 67 U/L (38-126); Anion Gap 10.5 mmol/L (7-16); Aspartate Amino Transferase 25 U/L (14-36); Bilirubin,Total 0.9 mg/dL (0.2-1.3); Blood Urea Nitrogen 6 mg/dL (7-17); Carbon Dioxide 29 mmol/L (22-30); Chloride 99 mmol/L (98-107); Estimated CRCL calculation 85 ml/min; Estimated Glomerular Filt Rate > 60; Glucose 100 mg/dL (65-105); Magnesium 2.1 mg/dL (1.6-2.3); Potassium 3.5 mmol/L (3.4-5.0); Sodium 135 mmol/L (137-145)
[2020-01-25] MEDS: LEVOTHYROXINE SODIUM 75 MCG TABLET PO (06:14)
[2020-01-25] MEDS: ACETAMINOPHEN 325 MG TABLET 650 MG PO ×2 (06:15→15:58)
[2020-01-25] MEDS: LORATADINE 10 MG TABLET PO (09:45)
[2020-01-25] MEDS: ENOXAPARIN 40 MG/0.4 ML SYRINGE SUB-Q (09:45)
[2020-01-25] MEDS: lisinopriL 10 MG TABLET PO ×2 (09:45→16:01)
[2020-01-25] MEDS: PANTOPRAZOLE 40 MG TABLET PO (09:45)
--- NOTE | 2020-01-25 10:45 | WPDGIPROGNO ---
Progress Note: A&P Additional Plan Patient alert. Comfortable this morning. She does report some diarrhea since bowel function resumed. She denies any bleeding. She denies fever. Abdominal pain is improved. Physical exam reveals her to be alert. Vital signs stable. Lungs are clear. Heart without murmur. Abdomen is obese. Bowel sounds are present soft nontender with no organomegaly. Labs reveal LFTs have returned towards normal. Lipase is normalized. Impression 1. Acute idiopathic pancreatitis appears to have resolved. Plan is to advance to a low-fat diet. Discharge when stable. Creon pancreatic enzyme supplement will be started because of diarrhea. 2. Diarrhea. Likely secondary to resolution of ileus. If diarrhea persists stool culture would be advised. 3. Anxiety. Plan is for discharge if all agree. Low-fat diet. Creon supplements may be of some benefit. Subjective Date/time seen: 01/25/20 10:45 Objective Data Vital Signs Vital Signs: Vital Signs - 24 hr 01/24/20 14:00 01/24/20 21:48 01/25/20 05:51 Temperature 98.3 F 98.9 F 98.9 F Pulse Rate 78 77 79 Respiratory Rate 14 14 16 Blood Pressure 156/76 H 155/87 H 152/86 H Pulse Oximetry 95 96 95 Intake/Output Intake/Output: Intake & Output 01/22/20 01/23/20 01/24/20 01/25/20 23:59 23:59 23:59 23:59 Intake Total 2300 3530 2580 380 Output Total 3030 2150 2100 1000 Balance -730 1380 480 -620 Meds/Results Medications: Active Medications Generic Name Dose Route Start Last Admin Trade Name Freq PRN Reason Stop Dose Admin Acetaminophen 650 mg 01/23/20 08:08 01/25/20 06:15 Tylenol Tablet PO 650 mg Q4H PRN Administration Pain 1-5 Hydrocodone Bitart/Acetaminophen 1 tab 01/23/20 08:08 01/24/20 21:26 [place] 5-325 Mg PO 1 tab Q6H PRN Administration Pain 6-10 Enoxaparin Sodium 40 mg 01/20/20 09:00 01/25/20 09:45 Lovenox SUB-Q 40 mg DAILY STEF Administration Levothyroxine Sodium 75 mcg 01/24/20 06:30 01/25/20 06:14 Synthroid PO 75 mcg DAILY@0630 STEF Administration Lisinopril 10 mg 01/23/20 09:00 01/25/20 09:45 Prinivil PO 10 mg BID STEF Administration Loratadine 10 mg 01/23/20 09:00 01/25/20 09:45 Claritin PO 10 mg QAM STEF Administration Ondansetron HCl 4 mg 01/19/20 22:35 01/24/20 06:15 Zofran Inj IV PUSH 4 mg Q4H PRN Administration Nausea Pantoprazole Sodium 40 mg 01/23/20 09:00 01/25/20 09:45 Protonix PO 40 mg QAM STEF Administration Radiology Results: ITS Impressions Abdomen/Pelvis CT 01/19/20 23:00 IMPRESSION: 1. Acute pancreatitis, likely interstitial edematous pancreatitis, with acute peripancreatic fluid collection. 2. Diffuse hepatic steatosis. Upper Quadrant Ultrasound 01/20/20 14:59 IMPRESSION: 1. Diffuse hepatic steatosis. Chest X-Ray 01/22/20 09:11 IMPRESSION: New bibasilar infiltrate and/or atelectasis since 01/19/2020 Labs Labs: Laboratory Results - last 24 hr 01/25/20 01/25/20 05:30 05:30 WBC 11.6 H RBC 3.68 L Hgb 11.2 L Hct 34.2 L MCV 92.9 MCH 30.4 MCHC 32.7 RDW 13.2 Plt Count 313 MPV 10.2 Sodium 135 L Potassium 3.5 Chloride 99 Carbon Dioxide 29 Anion Gap 10.5 BUN 6 L Creatinine 0.70 Estim Creat Clear Calc 85 Estimated GFR > 60 Glucose 100 Calcium 8.0 L Magnesium 2.1 Total Bilirubin 0.9 AST 25 ALT 37 H Alkaline Phosphatase 67 Total Protein 6.0 L Albumin 3.1 L
[2020-01-25] MEDS: LIPASE/AMYLASE/PROTEASE 12,000 UNITS CAP 1 CAP PO ×2 (11:33→16:01)
[2020-01-25 14:00] VITALS: BP 148/89; PULSE 80; RESP 18; TEMP 36.2; O2SAT 95
--- NOTE | 2020-01-25 17:24 | PM.DS ---
DS: Admitting Diagnosis Admitting Diagnosis Admitting Diagnosis: Acute pancreatitis without necrosis or infection, unspecified DS: Discharge Diagnosis Discharge Diagnosis (1) Pancreatitis: Qualifiers: Acute pancreatitis complication: no infection or necrosis Chronicity: acute Pancreatitis type: idiopathic Qualified Code(s): K85.00 - Idiopathic acute pancreatitis without necrosis or infection Code(s): K85.90 - Acute pancreatitis without necrosis or infection, unspecified Status: Acute Assessment and Plan: Evident on CT. Likely due to idiopathic pancreatitis, especially in the setting of the acute high fat meal. She has a history of cholecystectomy, therefore gallstone pancreatitis is less likely. She denies significant alcohol use. Triglycerides are within normal limits. RUQ US revealed hepatic steatosis with no evidence of retained gallstones. Lipase resolved to normal with supportive care. (2) Hypertension: Qualifiers: Hypertension type: essential hypertension Qualified Code(s): I10 - Essential (primary) hypertension Code(s): I10 - Essential (primary) hypertension Status: Chronic Assessment and Plan: Continue home lisinopril. (3) GERD (gastroesophageal reflux disease): Qualifiers: Esophagitis presence: esophagitis presence not specified Qualified Code(s): K21.9 - Gastro-esophageal reflux disease without esophagitis Code(s): K21.9 - Gastro-esophageal reflux disease without esophagitis Status: Chronic Assessment and Plan: Continue protonix. (4) Hypothyroidism: Qualifiers: Hypothyroidism type: unspecified Qualified Code(s): E03.9 - Hypothyroidism, unspecified Code(s): E03.9 - Hypothyroidism, unspecified Status: Chronic Assessment and Plan: Continue levothyroxine. (5) Obesity (BMI 30.0-34.9): Code(s): E66.9 - Obesity, unspecified Status: Chronic Assessment and Plan: Continue to encourage weight loss/lifestyle modifications. (6) Hypokalemia: Code(s): E87.6 - Hypokalemia Status: Resolved Assessment and Plan: Resolved with oral replacement and stable day of discharge. (7) DVT prophylaxis: Code(s): Z29.9 - Encounter for prophylactic measures, unspecified Status: Acute Assessment and Plan: Lovenox SQ. DS: Summary Hospital Course Hospital Course: Date of Service 01/25/20 Ms. Ramírez is a 54yo F with history of hypertension, hypothyroidism and GERD who presented to the ED for evaluation of epigastric pain. She was found to [place] [address] [place]. She was treated with supportive care to include bowel rest, hydration, and pain control. GI was consulted and she was evaluated by Dr Frank. Lipase resolved to 45 prior to discharge. She did develop some nonbloody diarrhea and Dr Frank started pancreatic enzyme supplementation with Creon. Diet was gradually advanced and she was tolerating a low-fat diet prior to discharge. She was hemodynamically stable for discharge 01/25/20 with instructions to continue low-fat diet, taking PPI, and follow up with PCP. Follow up with Dr Frank as needed. After patient discharge, received results of C. diff positive stool. Patient was contacted by phone 01/28/20 and results were discussed. Oral vancomycin 125mg q6 x 10 days was prescribed. Explained to patient this medication sometimes is high cost to patients and discussed GoodRx coupons online. Using the cost-checker and packer the EMR, it suggests that this medication may actually only cost the patient $10. Discussed follow up with PCP and she has an appointment scheduled for 02/01/20. Time Spent with Patient Time attestati
== END 2020-01-25 17:56 | disposition home or self-care (01) | DRG 439 ==
LOC: ANHED 22:46 → ANH3MED 23:44
PROVIDERS: Emergency Medicine; Physician Assistant; Admitting Provider Internal Medicine; Emergency Provider Emergency Medicine; PCP Family Medicine; Visit Provider Physician Assistant
DX: K85.00 Idiopathic acute pancreatitis without necrosis or infection (principal); R65.10 Systemic inflammatory response syndrome (SIRS) of non-infectious origin without acute organ dysfunction; A04.72 Enterocolitis due to Clostridium difficile, not specified as recurrent; J98.11 Atelectasis; Z68.41 Body mass index [BMI] 40.0-44.9, adult; E66.9 Obesity, unspecified; E03.9 Hypothyroidism, unspecified; I10 Essential (primary) hypertension; K21.9 Gastro-esophageal reflux disease without esophagitis; E87.6 Hypokalemia; F41.9 Anxiety disorder, unspecified; Z79.899 Other long term (current) drug therapy; Z90.49 Acquired absence of other specified parts of digestive tract
CPT/HCPCS: 36415; 71045; 71046; 74177; 76705; 80048; 80053; 80076; 81001; 82248; 83036; 83690; 83735; 84443; 84478; 84484; 85025; 85027; 85610; 85730; 86140; 87015; 87040; 87045; 87046; 87269; 87272; 87324; 87427; 87493; 89055; 93005; 96372; 96374; 96375; 99285; A9270; C9113; J0131; J0500; J1650; J2270; J2405; J2550; J3010; J7120; Q9967